=== PATIENT | male | born 1985 ===

== ENCOUNTER 2020-11-12 02:18 | Emergency (ER) | payer SELFPAY ==
[2020-11-12 02:24] VITALS: BP 125/82
[2020-11-12] MEDS ORDERED: oxyCODONE /ACETAMINOPHEN 5-325MG TAB PO ONE (03:52)
[2020-11-12] MEDS ORDERED: ONDANSETRON 4 MG ODT TAB PO ONE ×2 (03:52→05:48)
[2020-11-12] MEDS ORDERED: ceFAZolin 1 GM VIAL IM ONE (03:52)
[2020-11-12] MEDS ORDERED: TETANUS,DIPH,PERTUSS(ACELL) VACCINE 0.5 ML SYRINGE IM ONE (03:52)
[2020-11-12] MEDS ORDERED: LIDOCAINE (1%) 10 MG/1 ML VIAL 20 ML MDV INFILTRATI ONE (03:53)
--- NOTE | 2020-11-12 03:55 | Emergency Department Report ---
ED General Adult HPI - General Chief complaint: Extremity Injury, Upper Stated complaint: THUMB LAC Time Seen by Provider: 11/12/20 03:37 Source: patient, family Mode of arrival: Ambulatory Limitations: Language Barrier - History of Present Illness Initial comments: 32-year-old [id number] male patient presents to the emergency department complaints of a right thumb laceration occurring earlier tonight. Patient states he was at a green party when he accidentally fell and cut his right thumb on some rocks outside. There was no resulting head injury or loss of consciousness. Patient cannot recall his last tetanus immunization. Denies all other complaints at this time. Severity scale (0 -10): 0 - Related Data Previous Rx's Medication Instructions Recorded Last Taken Type Naproxen 500 mg PO BID #20 tablet 11/12/20 Unknown Rx cephALEXin [Keflex] 500 mg PO Q8HR 7 Days cap 11/12/20 Unknown Rx Allergies Allergy/AdvReac Type Severity Reaction Status Date / Time No Known Allergies Allergy Unverified 11/12/20 02:22 ED Review of Systems ROS: Stated complaint: THUMB LAC Other details as noted in HPI Other: CARDIOVASCULAR: Negative for chest pain. PULMONARY: Negative for dyspnea. GASTROINTESTINAL: Negative for abdominal pain. MUSCULOSKELETAL: Negative for back pain and neck pain. NEUROLOGICAL: Negative for headache. INTEGUMENTARY: Positive for laceration. ED Past Medical Hx - Past Medical History Previous Medical History?: No - Surgical History Past Surgical History?: No - Medications Home Medications: Home Medications Medication Instructions Recorded Confirmed Last Taken Type Naproxen 500 mg PO BID #20 tablet 11/12/20 Unknown Rx cephALEXin [Keflex] 500 mg PO Q8HR 7 Days cap 11/12/20 Unknown Rx ED Physical Exam - General Limitations: Language Barrier - Other Other exam information: General: Awake, appropriately interactive, no acute distress. Neck: Supple. Full range of motion intact. Cardiovascular: Normal peripheral perfusion. Pulmonary: No respiratory distress. Patient is speaking normally without use of accessory muscles. Skin: Curvilinear laceration to the distal aspect of the right thumb involving skin, subcutaneous tissue, and muscle. Active and passive range of motion intact with and without resistance in all directions. Distal neurovascular and motor/sensory function is intact. The nail is intact. Good hemostasis. The wound does not appear grossly contaminated. Neurological: No facial asymmetry. Speech is clear. Follows commands. Patient is alert and oriented. Musculoskeletal: Moves all four extremities spontaneously with normal range of motion. Psych: Cooperative. Appropriate mood and affect. ED Course Vital Signs 11/12/20 02:22 Temperature 98.5 F Pulse Rate 100 H Respiratory 18 Rate Blood Pressure 125/82 [Left] O2 Sat by Pulse 100 Oximetry - Procedure Description Procedures done: Verbal consent was obtained from the patient. The site was identified. Hand hygiene was observed. The area was prepped and draped. A digital block was performed using a 25-gauge needle. Approximately 8 mL of lidocaine 1% were infused at the base of the right thumb. Tourniquet was applied to achieve maximal analgesia and hemostasis. The wound was irrigated extensively with saline and cleansed with Betadine. No evidence of retained foreign body. Six 3-0 Prolene sutures were placed in a simple interrupted fashion with significant improvement in approximation of wound edges. Repeat tendon and neurovascular exam intact. Patient developed nausea during the procedure and was given Zofran 4 mg ODT. Otherwise, patient tolerated the procedure well without complications. ED Medical Decision Making - Radiology Data [address] [address] XRay Report Signed Patient: MELCHOR MONTERROSO MR#: [id number] : 1985 Acct:[id number] Age/Sex: 35 / M ADM Date: 11/12/20 Loc: ED Attending Dr: Ordering Physician: CANDICE SCOTT Date of Service: 11/12/20 Procedure(s): XR hand 3+V RT Accession Number(s): [id number] cc: CANDICE SCOTT Fluoro Time In Minutes: Right hand-3 views INDICATION: laceration to right thumb. COMPARISON: None. IMPRESSION: No acute osseous abnormality. Soft tissue laceration over the thumb with mild swelling also present. Normal alignment. No significant DJD. Signer Name: Tio Spencer MD Signed: 11/12/2020 4:40 AM Workstation Name: [id number] Transcribed By: RICARDO Dictated By: Tio Spencer MD Electronically Authenticated By: Tio Spencer MD Signed Date/Time: 11/12/20439 DD/ 9 TD/TT: - Medical Decision Making Differential diagnosis including but not limited to: laceration, tendon injury, neurovascular injury, foreign body On reevaluation, patient is stable. Repeat neurovascular exam remains intact. Repeat tendon exam remains intact. X-rays without evidence of retained foreign body or fracture. Tetanus updated. Ancef administered. Laceration repaired following digital block. See procedure note for details. No clinical indication for further diagnostic work-up on an emergent basis at this time. Patient will be discharged home with prescription for Keflex, NSAIDs, and referrals to multiple hand surgeons at [facility] for close outpatient follow-up. Emphasized the importance of calling the hand surgeon's office today to arrange for prompt reevaluation. Patient expressed understanding and is agreeable to plan of care. Wound care precautions discussed. Strict return precautions provided. Repeat exam is unremarkable and benign. History, exam, diagnostic testing, and current condition do not suggest worrisome pathology to warrant further testing, continued ED treatment, admission, or surgical evaluation at this point. Given the low probability of a significant medical illness, it would be more likely to result in harm than benefit to perform further testing at this stage. Discussed findings, presumptive diagnosis, need for follow-up and specific signs/symptoms that should prompt immediate return to the emergency department. Instructions were explained in detail to the patient in addition to giving written discharge information. Patient expressed understanding and was given the opportunity to ask questions, all of which were satisfactorily answered prior to discharge home. Critical care attestation.: If time is entered above; I have spent that time in minutes in the direct care of this critically ill patient, excluding procedure time. ED Disposition Clinical Impression: Laceration of right thumb Qualifiers: Encounter type: initial encounter Damage to nail status: without damage Foreign body presence: without foreign body Qualified Code(s): S61.011A - Laceration without foreign body of right thumb without damage to nail, initial encounter Disposition: DC-01 TO HOME OR SELFCARE Is pt being admited?: No Does the pt Need Aspirin: No Condition: Stable Instructions: Laceration Care, Adult Additional Instructions: Take Tylenol every 4 hours as needed for pain. Take Naprosyn twice daily with food as needed for pain. Take Keflex with food as directed. Keep wound clean and covered. Change dressing daily. Wear splint as directed to preserve suture placement. Follow-up with hand surgeon this week for re-evaluation. Call today to schedule an appointment. See referral information below. Sutures must be removed in 10 to 14 days unless otherwise instructed by hand surgeon. Return to the emergency department immediately for new or worsening symptoms. Prescriptions: cephALEXin [Keflex] 500 mg PO Q8HR 7 Days cap Naproxen 500 mg PO BID #20 tablet Referrals: [facility] [Other] - 3-5 Days Forms: Work/School Release Form(ED) Time of Disposition: 06:18
--- NOTE | 2020-11-12 04:44 | XRay Report ---
Right hand-3 views INDICATION: laceration to right thumb. COMPARISON: None. IMPRESSION: No acute osseous abnormality. Soft tissue laceration over the thumb with mild swelling also present. Normal alignment. No significant DJD. Signer Name: Tio Spencer MD Signed: 11/12/2020 4:40 AM Workstation Name: [id number]
[2020-11-12] MEDS ORDERED: KETOROLAC 30 MG/1 ML INJ IM ONE (06:08)
[2020-11-12] MEDS ORDERED: NEOMY 3.5 MG/BACIT 400 UNITS/POLY B 5000 UNITS/GM OINT PACKET TP ONE (06:09)
== END 2020-11-12 07:15 | disposition home or self-care (01) ==
LOC: EDBD → ED 02:18
DX: S61.011A Laceration without foreign body of right thumb without damage to nail, initial encounter (principal); W18.30XA Fall on same level, unspecified, initial encounter; Y93.89 Activity, other specified; Y92.89 Other specified places as the place of occurrence of the external cause; Y99.8 Other external cause status
CPT/HCPCS: 12001; 73130; 90471; 90715; 96372; 99283; A6250; J0690; J1885; Q0162